=== PATIENT | female | born 1940 | race Caucasian/White ===

== ENCOUNTER → 2016-09-29 | Outpatient (CLI) | payer MEDICARE ==
--- NOTE | 2016-09-29 11:53 | WWHP ---
DATE OF SERVICE: 09/29/2016 CHIEF COMPLAINT: The patient is here for her routine gynecologic exam and mammogram. HPI: This is a 75-year-old G3, P3 with an LMP of 1990. The patient is without gynecologic complaints and denies any postmenopausal bleeding. PAST MEDICAL HISTORY: Osteopenia, status post more than 10 years of Fosamax use in the past and this was stopped in 2009. She denies any other medical problems. MEDICATIONS: 1. Multivitamin daily. 2. Calcium with vitamin D b.i.d. 3. Aspirin 81 mg daily. ALLERGIES: No known drug allergies. Past surgical, [employer], and family histories are unchanged from the 2016 H&P. SOCIAL HISTORY: She smokes about 8 cigarettes per day and has 0 to 1 alcoholic drink per week and denies drug use. She is and is not sexually active. 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 REVIEW OF SYSTEMS: Weight has been stable. She denies respiratory, cardiac, or GI problems. She denies maltreatment or falling. She denies any problems with urinary incontinence. PHYSICAL EXAM: Blood pressure 122/82. Height 5 feet 1 inch. Weight 110 pounds. Temperature 98.2, pulse 61. This a well-developed, well-nourished white female who is alert and oriented x3 in no acute distress. HEENT is within normal limits. NECK: Supple without mass or thyromegaly. CHEST AND LUNGS: Clear to auscultation. HEART: Regular rate and rhythm. Breasts are without mass or discharge. Axillary exam is negative for adenopathy. BACK: Negative for CVA tenderness. ABDOMEN: Soft, nontender, without palpable masses. PELVIC EXAM: External genitalia reveals mild to moderate atrophy without lesions. Cervix and vagina reveal mild to moderate atrophy without lesions. There is no evidence of prolapse. The uterus is midposition, nongravid size and nontender. There are no palpable adnexal masses or tenderness. Rectovaginal exam is negative for mass or tenderness and is negative for occult blood. EXTREMITIES: Nontender. IMPRESSION: 1. A 75-year-old menopausal female with normal gynecologic exam. 2. History of osteopenia, status post more than 10 years use of Fosamax in the past. PLAN: 1. Pap smear was performed. 2. Self breast examination was discussed. 3. Mammogram will be done today. 4. Osteoporosis prevention was discussed. Bone density screening will be done today. 5. I have recommended that she try to quit smoking. 6. The patient states she does not get flu shots and is not interested in getting flu shots. 7. She will return in one year.
--- NOTE | 2016-09-29 12:05 | BD ---
EXAMINATION TYPE: MG DEXA axial skeleton. DATE OF EXAM: 09/29/2016 11:10 AM CLINICAL HISTORY: Postmenopausal female COMPARISON: DEXA bone scan October 04, 2013. Height: 61 inches Weight: 110 FRAX RISK QUESTIONS: Alcohol (3 or more units per day): no Family History (Parent hip fracture): no Glucocorticoids (More than 3mos): no (Ex: prednisone, prednisolone, methylprednisolone, dexamethasone, and hydrocortisone). History of Fracture in Adulthood: no Secondary Osteoporosis: 1. Type 1 Diabetes: no 2. Hyperthyroidism: no 3. Menopause before 45: no 4. Malnutrition: no 5. Chronic liver disease: no Rheumatoid Arthritis: no Current Tobacco Use: yes RISK FACTORS HISTORY OF: History of Fracture: no Family History of Osteoporosis: no Drink Alcohol: very very seldom Active: yes Diet low in dairy products/other sources of calcium: no Postmenopausal woman: yes Take estrogen and/or progesterone medications: not now How long: less than 2 years Lost more than 2 inches in height since high school: no Frequent falls: no Poor Health: no Hyperparathyroidism: no Adrenal Insufficiency: no MEDICATIONS: Prednisone or other steroids: no Thyroid Medications: no Osteoporosis Medications: not now Which medication: Fosamax How Long: less than 1 year Additional Medications: calcium with vitamin D EXAM MEASUREMENTS: Bone mineral densitometry was performed using the [employer] System. Bone mineral density as measured about the Lumbar spine is: ----- L1-L4(G/cm2): 0.956 T Score Values are as follows: ----- L2: -2.5 ----- L3: -2.0 ----- L4: -1.1 ----- L1-L4: -1.9 Bone mineral density has: Decreased -3.3% since study of: 10/04/2013 Bone mineral density about the R hip (g/cm2): 0.860 Bone mineral density about the L hip (g/cm2): 0.842 T Score values are as follows: -----R Neck: -1.3 -----L Neck: -1.4 -----R Intertrochanter: -1.3 -----L Intertrochanter: -1.2 Bone mineral density has: Decreased -3.4% since study of: 10/04/2013 IMPRESSION: Osteopenia (T Score between -2.5 and -1 as noted by T score values in the Low Back and bilateral hips . Bone density is decreased or diminished from prior. There remains slightly increased risk of fracture and the patient may be considered for treatment. Re-Screen 1-2 years. NOTE: T-SCORE=SD OF THE YOUNG ADULT MEAN.
--- NOTE | 2016-09-30 07:40 | MM ---
Reason for exam: screening (asymptomatic). Last mammogram was performed 1 year and 1 month ago. History: Patient is postmenopausal. Excisional biopsy of the left breast. 2 excisional biopsies of the right breast. Physical Findings: A clinical breast exam by your physician is recommended on an annual basis and results should be correlated with mammographic findings. MG 3D Screening Mammo W/Cad Bilateral CC and MLO view(s) were taken. Prior study comparison: September 03, 2015, bilateral MG screening mammo w CAD. October 03, 2013, bilateral digital screening mammo w/CAD. August 31, 2012, bilateral digital screening mammo w/CAD. The breast tissue is heterogeneously dense. This may lower the sensitivity of mammography. Finding: There are typically benign vascular, punctate, round calcifications in both breasts. There is no discrete abnormality. ASSESSMENT: Benign, BI-RAD 2 RECOMMENDATION: Routine screening mammogram of both breasts in 1 year.
== END | disposition home or self-care (01) ==
LOC: WWCWWP 09:06
PROVIDERS: ATTEND Obstetrics & Gynecology
DX: Z12.31 Encounter for screening mammogram for malignant neoplasm of breast (principal); M85.89 Other specified disorders of bone density and structure, multiple sites
CPT/HCPCS: 77080; 77063; G0202

== ENCOUNTER 2018-08-03 11:50 | Emergency (ER) | payer MEDICARE ==
[2018-08-03] MEDS ORDERED: NITROGLYCERIN OINT 1 INCH/GM PACKET TOPICAL STA (12:00)
[2018-08-03] MEDS ORDERED: ASPIRIN 81 MG PO STA (12:00)
--- NOTE | 2018-08-03 12:15 | ED ---
General Adult HPI - General Chief complaint: Chest Pain Stated complaint: chest pain Time Seen by Provider: 08/03/18 11:50 Source: patient, RN notes reviewed Mode of arrival: EMS Limitations: no limitations - History of Present Illness Initial comments: This is a 77-year-old female with past medical history significant for smoking. Patient has no history of diabetes hypertension high cost felt. 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 Patient states the chest pain came on at 9:30 and lasted for about 3-4 minutes but was still there a little bit but the diaphoresis lasted for at least 15 minutes. Patient states she got up and she was very lightheaded.she might pass out but did not. Patient states now she has no chest pain but she does have some discomfort between her shoulder blades when she takes a deep breath only. Patient states the pain is just did not seem classic heaviness the people described she felt as though it was multiple individual horizontal lines of pain going across her chest. Patient denies any calf tenderness or leg swelling. Patient denies any recent fever chills or cough per patient denies abdominal pain patient denies nausea vomiting diarrhea. - Related Data Home Medications Medication Instructions Recorded Confirmed Aspirin EC [Ecotrin Low Dose] 81 mg PO HS 08/03/18 08/03/18 Calcium Carbonate/Vitamin D3 1 tab PO HS 08/03/18 08/03/18 [Calcium 600-Vit D3 200 Tablet] Melatonin 5 mg PO HS 08/03/18 08/03/18 Multivitamins, Thera [Multivitamin 1 tab PO HS 08/03/18 08/03/18 (formulary)] Allergies Allergy/AdvReac Type Severity Reaction Status Date / Time No Known Allergies Allergy Verified 08/03/18 12:37 Review of Systems ROS Statement: Those systems with pertinent positive or pertinent negative responses have been documented in the HPI. ROS Other: All systems not noted in ROS Statement are negative. Past Medical History Past Medical History: No Reported History History of Any Multi-Drug Resistant Organisms: None Reported Past Surgical History: No Surgical Hx Reported Past Psychological History: No Psychological Hx Reported Smoking Status: Current every day smoker Past Alcohol Use History: Occasional Past Drug Use History: None Reported General Exam - General Exam Comments Initial Comments: GENERAL: Patient is well-developed and well-nourished. Patient is nontoxic and well- hydrated and is in mild distress. ENT: Neck is soft and supple. No significant lymphadenopathy is noted. Oropharynx is clear. Moist mucous membranes. Neck has full range of motion without eliciting any pain. EYES: The sclera were anicteric and conjunctiva were pink and moist. Extraocular movements were intact and pupils were equal round and reactive to light. Eyelids were unremarkable. PULMONARY: Unlabored respirations. Good breath sounds bilaterally. No audible rales rhonchi or wheezing was noted. CARDIOVASCULAR: There is a regular rate and rhythm without any murmurs gallops or rubs. ABDOMEN: Soft and nontender with normal bowel sounds. No palpable organomegaly was noted. There is no palpable pulsatile mass. SKIN: Skin is clear with no lesions or rashes and otherwise unremarkable. NEUROLOGIC: Patient is alert and oriented x3. Cranial nerves II through XII are grossly intact. Motor and sensory are also intact. Normal speech, volume and content. Symmetrical smile. MUSCULOSKELETAL: Normal extremities with adequate strength and full range of motion. No lower extremity swelling or edema. No calf tenderness. LYMPHATICS: No significant lymphadenopathy is noted PSYCHIATRIC: Normal psychiatric evaluation. Limitations: no limitations Course Vital Signs 08/03/18 08/03/18 08/03/18 11:56 12:00 12:03 Temperature 97.9 F Pulse Rate 70 77 Respiratory 16 16 Rate Blood Pressure 118/98 123/98 O2 Sat by Pulse 98 99 98 Oximetry 08/03/18 08/03/18 08/03/18 13:34 14:47 15:10 Temperature 98 F Pulse Rate 80 81 84 Respiratory 18 18 16 Rate Blood Pressure 101/78 89/78 113/77 O2 Sat by Pulse 97 96 97 Oximetry 08/03/18 15:54 Temperature 97.9 F Pulse Rate 81 Respiratory 18 Rate Blood Pressure 103/75 O2 Sat by Pulse 96 Oximetry Medical Decision Making - Medical Decision Making EKG shows sinus rhythm at 79 bpm GA interval 228 QRSs 82 QT interval 376 QTC is 431. EKG shows no ST segment elevation or depression or T wave abnormalities are noted Approximate 3:15 I got a call from the radiologist to inform me that it appeared that the patient's aorta was potentially rupturing. I spoke with [facility] emergency Department Dr. Mendoza and they will be calling me back as to whether they can accept the patient. Family was requesting [facility] returned the phone call 3:30 and refused to take the patient. I spoke with [facility] on the request of the family and they accepted the patient however can call me back with a bed before he can start the transfer. Patient's systolic blood pressure dropped a little bit under 170 the patient a 500 mL bolus of normal saline. Patient also is somewhat anxious side gave the patient 0.5 mL of Ativan. Patient felt considerably better. [facility] call back with a bed and EMS was on standby waiting in the ER and immediately took the patient to transfer to [facility]. - Lab Data Result diagrams: 08/03/18 12:15 08/03/18 12:15 Lab Results 08/03/18 08/03/18 08/03/18 Range/Units 12:15 12:15 12:15 WBC 12.1 H (3.8-10.6) k/uL RBC 4.27 (3.80-5.40) m/uL Hgb 12.5 (11.4-16.0) gm/dL Hct 39.8 (34.0-46.0) % MCV 93.3 (80.0-100.0) fL MCH 29.4 (25.0-35.0) pg MCHC 31.5 (31.0-37.0) g/dL RDW 14.1 (11.5-15.5) % Plt Count 253 (150-450) k/uL Neutrophils % 85 % Lymphocytes % 9 % Monocytes % 4 % Eosinophils % 1 % Basophils % 0 % Neutrophils # 10.3 H (1.3-7.7) k/uL Lymphocytes # 1.1 (1.0-4.8) k/uL Monocytes # 0.5 (0-1.0) k/uL Eosinophils # 0.1 (0-0.7) k/uL Basophils # 0.1 (0-0.2) k/uL PT (9.0-12.0) sec INR (<1.2) APTT (22.0-30.0) sec Sodium 138 (137-145) mmol/L Potassium 4.9 (3.5-5.1) mmol/L Chloride 107 (98-107) mmol/L Carbon Dioxide 23 (22-30) mmol/L Anion Gap 8 mmol/L BUN 22 H (7-17) mg/dL Creatinine 0.90 (0.52-1.04) mg/dL Est GFR (CKD-EPI)AfAm 71 (>60 ml/min/1.73 sqM) Est GFR (CKD-EPI)NonAf 62 (>60 ml/min/1.73 sqM) Glucose 107 H (74-99) mg/dL Calcium 9.6 (8.4-10.2) mg/dL Magnesium 2.1 (1.6-2.3) mg/dL Total Bilirubin 0.5 (0.2-1.3) mg/dL AST 96 H (14-36) U/L ALT 85 H (9-52) U/L Alkaline Phosphatase 43 (38-126) U/L Total Creatine Kinase 69 (30-135) U/L CK-MB (CK-2) 0.9 (0.0-2.4) ng/mL CK-MB (CK-2) Rel Index 1.3 Troponin I 0.023 (0.000-0.034) ng/mL Total Protein 6.7 (6.3-8.2) g/dL Albumin 4.0 (3.5-5.0) g/dL 08/03/18 Range/Units 12:15 WBC (3.8-10.6) k/uL RBC (3.80-5.40) m/uL Hgb (11.4-16.0) gm/dL Hct (34.0-46.0) % MCV (80.0-100.0) fL MCH (25.0-35.0) pg MCHC (31.0-37.0) g/dL RDW (11.5-15.5) % Plt Count (150-450) k/uL Neutrophils % % Lymphocytes % % Monocytes % % Eosinophils % % Basophils % % Neutrophils # (1.3-7.7) k/uL Lymphocytes # (1.0-4.8) k/uL Monocytes # (0-1.0) k/uL Eosinophils # (0-0.7) k/uL Basophils # (0-0.2) k/uL PT 10.5 (9.0-12.0) sec INR 1.0 (<1.2) APTT 22.4 (22.0-30.0) sec Sodium (137-145) mmol/L Potassium (3.5-5.1) mmol/L Chloride (98-107) mmol/L Carbon Dioxide (22-30) mmol/L Anion Gap mmol/L BUN (7-17) mg/dL Creatinine (0.52-1.04) mg/dL Est GFR (CKD-EPI)AfAm (>60 ml/min/1.73 sqM) Est GFR (CKD-EPI)NonAf (>60 ml/min/1.73 sqM) Glucose (74-99) mg/dL Calcium (8.4-10.2) mg/dL Magnesium (1.6-2.3) mg/dL Total Bilirubin (0.2-1.3) mg/dL AST (14-36) U/L ALT (9-52) U/L Alkaline Phosphatase (38-126) U/L Total Creatine Kinase (30-135) U/L CK-MB (CK-2) (0.0-2.4) ng/mL CK-MB (CK-2) Rel Index Troponin I (0.000-0.034) ng/mL Total Protein (6.3-8.2) g/dL Albumin (3.5-5.0) g/dL Critical Care Time Critical Care Time: Yes Total Critical Care Time: 80 Disposition Clinical Impression: Ruptured thoracic aortic aneurysm Disposition: OTHER INSTITUTION NOT DEFINED Referrals: Sheldon Robles MD [Primary Care Provider] - 1-2 days Time of Disposition: 16:16 - Out of Hospital Transfer - Req. Specs Out of Hospital Transfer - Requested Specifics: Cardiac ICU ([facility] )
[2018-08-03 12:38] LABS: Basophils # (A) 0.1 k/uL (0-0.2); Basophils % (A) 0 %; Eosinophils # (A) 0.1 k/uL (0-0.7); Eosinophils % (A) 1 %; HCT 39.8 % (34.0-46.0); HGB 12.5 gm/dL (11.4-16.0); Lymphocytes # (A) 1.1 k/uL (1.0-4.8); Lymphocytes % (A) 9 %; MCH 29.4 pg (25.0-35.0); MCHC 31.5 g/dL (31.0-37.0); MCV 93.3 fL (80.0-100.0); Monocytes # (A) 0.5 k/uL (0-1.0); Monocytes % (A) 4 %; Neutrophils # (A) 10.3 k/uL (1.3-7.7); Neutrophils % (A) 85 %; Platelet Count 253 k/uL (150-450); RBC 4.27 m/uL (3.80-5.40); RDW 14.1 % (11.5-15.5); WBC 12.1 k/uL (3.8-10.6)
[2018-08-03 12:47] LABS: Calcium 9.6 mg/dL (8.4-10.2); Magnesium 2.1 mg/dL (1.6-2.3); Potassium 4.9 mmol/L (3.5-5.1); Total Bilirubin 0.5 mg/dL (0.2-1.3); Total Protein 6.7 g/dL (6.3-8.2)
[2018-08-03 12:54] LABS: Partial Thromboplastin Time 22.4 sec (22.0-30.0); Prothrombin Time 10.5 sec (9.0-12.0)
--- NOTE | 2018-08-03 13:06 | XR ---
EXAMINATION TYPE: XR chest 2V DATE OF EXAM: 08/03/2018 COMPARISON: Chest x-ray October 04, 2013 HISTORY: Chest pain today. TECHNIQUE: Frontal and lateral views of the chest are obtained. FINDINGS: There is some chronic parenchymal change without suspicious focal air space opacity, pleur al effusion, or pneumothorax seen. The cardiac silhouette size is upper limits of normal currently. There is atherosclerotic and ectatic thoracic aorta felt more prominent with involvement of the ascen ding aorta noted. The osseous structures are intact. IMPRESSION: Increasingly ectatic possible aneurysmal change to the thoracic aorta. No suspicious acut e pulmonary process is evident.
[2018-08-03 13:11] LABS: Creatine Kinase MB 0.9 ng/mL (0.0-2.4); Troponin I 0.023 ng/mL (0.000-0.034)
--- NOTE | 2018-08-03 15:15 | CT ---
EXAMINATION TYPE: CT angio thor/abd pel aorta DATE OF EXAM: 08/03/2018 COMPARISON: None. HISTORY: Chest pain today, abnormal x-ray. CT DLP: 882.9 mGycm. Automated Exposure Control for Dose Reduction was Utilized. CONTRAST: CTA scan of the thorax, abdomen and pelvis is performed without oral and without and with IV Contrast , patient injected with 100 mL of Isovue 370. FINDINGS: VASCULAR: Aneurysm to the ascending aorta measuring up to 3.8 cm diameter axial image 34 is noted. Th ere is suspicious surrounding fluid at level of the ascending aorta extending into the arch. There is slightly irregularity along the anterior wall of the ascending aorta axial image 32 noted. In additi on there is vague irregular linear low signal beginning in the proximal descending aorta for referen ce anteriorly proximal descending thoracic aorta axial image 33. There is extension of this vague brando ear signal to level of diaphragm and likely into the celiac axis which is poorly opacified at its brett gin axial image 82. There is bovine arch with patency of the great vessels from the aortic arch and n o dissection extension. There is patency of the SMA, bilateral single renal arteries and JEANNETTE. There i s patency of the iliac arteries in the pelvis and femoral arteries in the bilateral groin without obv ious stenosis or dissection. No aneurysm at this level is evident. LUNGS: Dependent atelectasis in both lower lobes is present. There is bibasilar linear scarring and/o r atelectasis MEDIASTINUM: There are no greater than 1 cm hilar or mediastinal lymph nodes. There is small to moder ate size pericardial effusion seen measuring up to 16 mm in thickness. No cardiomegaly is present. T here is moderate right atrial dilatation noted. OTHER: No additional significant abnormality is seen. LIVER/GB: Mild to moderate periportal edema is seen which is nonspecific finding. PANCREAS: No significant abnormality is seen. SPLEEN: No significant abnormality is seen. ADRENALS: No significant abnormality is seen. KIDNEYS: There is 3.1 cm simple appearing cyst posteriorly lower pole level right kidney axial image 105 series 501. BOWEL:. There is nonspecific moderate wall thickening and mild dilatation of the duodenal sweep. GENITAL ORGANS: Scattered pelvic phleboliths are present bilaterally. LYMPH NODES: No greater than 1cm abdominal or pelvic lymph nodes are appreciated. OSSEOUS STRUCTURES: There is grade 1 anterolisthesis L4 on L5. OTHER: No significant additional abnormality is seen. IMPRESSION: Ascending aortic aneurysm up to 3.8 cm in diameter is confirmed. There are suspicious fi ndings consistent with impending rupture due to moderate mediastinal fluid collection and moderate-si zed pericardial effusion with irregularity along the anterior margin of the aorta. Unusual vague brando ear hypodensity in the descending aorta is not classic of dissection but cannot be excluded. No proxi mal extension into the ascending aorta or arch is identified. Suspicious narrowing of the celiac sunny ry at origin is present suggesting dissection extension at this level. Further details as discussed a kiley. Critical results communicated to ordering ER physician via telephone at time of dictation.
[2018-08-03] MEDS ORDERED: LORazepam 2 MG/ML INJ IV STA ×2 (15:17→15:59)
[2018-08-03] MEDS ORDERED: SODIUM CHLORIDE 0.9% 500 ML 500 ML IV ONE (15:49)
[2018-08-03 15:57] VITALS: BP 103/75; PULSE 81; RESP 18; TEMP 97.9
== END 2018-08-03 16:17 | disposition other institution (70) ==
LOC: EC 11:50
DX: I71.1 Thoracic aortic aneurysm, ruptured (principal); F17.200 Nicotine dependence, unspecified, uncomplicated; Z79.82 Long term (current) use of aspirin; Z79.899 Other long term (current) drug therapy
CPT/HCPCS: 99291 ×2; 99292 ×2; 96374 ×2; 96376; 96375; 36415; 93005; 80053; 82550; 82553; 83735; 84484; 85025; 85610; 85730; 71046; 71275; 74174; J2060; Q9967

== ENCOUNTER → 2019-08-01 | Outpatient (CLI) | payer MEDICARE ==
[2019-08-01 12:53] VITALS: BP 154/92; PULSE 62; RESP 18; TEMP 97.4
--- NOTE | 2019-08-01 13:32 | P.HPOB ---
History of Present Illness H&P Date: 08/01/19 Chief Complaint: The patient is here for her routine gynecologic exam and ma mmogram. This is a 78-year-old with an LMP of 1990. The patient is without gynecologic complaints. Review of Systems She is gained about 6 pounds over the last 3 years. She denies respiratory, cardiac and G.I. problems. She denies maltreatment or problems with falling. : Occasionally has small leakage if she does not get to the bathroom on time. Past Medical History Additional Past Medical History / Comment(s): Aortic dissection requiring surgery 2018. Osteopenia status post 10 years use of Fosamax which was disco ntinued in 2009. 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 History of Any Multi-Drug Resistant Organisms: None Reported Past Surgical History: Breast Surgery Additional Past Surgical History / Comment(s): Surgery for aortic dissection 2018. Lithotripsy for kidney stones. Multiple breast biopsies. Past Psychological History: No Psychological Hx Reported Smoking Status: Former smoker Past Alcohol Use History: Occasional (1-2 per week.) Additional Past Alcohol Use History / Comment(s): Quit smoking July 2018 after her aortic dissection. Past Drug Use History: None Reported Additional History: The patient is and is not sexually active. 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 - Past Family History Mother Family Medical History: Cancer Additional Family Medical History / Comment(s): Multiple myeloma. Brother(s) Family Medical History: Dementia Medications and Allergies Home Medications Medication Instructions Recorded Confirmed Type Aspirin EC [Ecotrin Low Dose] 81 mg PO HS 08/03/18 08/01/19 History Calcium Carbonate/Vitamin D3 1 tab PO HS 08/03/18 08/01/19 History [Calcium 600-Vit D3 200 Tablet] Melatonin 5 mg PO HS 08/03/18 08/01/19 History Multivitamins, Thera [Multivitamin 1 tab PO HS 08/03/18 08/01/19 History (formulary)] Atorvastatin [Lipitor] 10 mg PO HS 08/01/19 08/01/19 History Potassium 99 mg PO DAILY 08/01/19 08/01/19 History Allergies Allergy/AdvReac Type Severity Reaction Status Date / Time No Known Allergies Allergy Verified 08/01/19 12:53 Exam Vital Signs Temp Pulse Resp BP Pulse Ox 08/01/19 12:48 97.4 F L 62 18 154/92 98 Intake and Output 07/31/19 08/01/19 08/01/19 22:59 06:59 14:59 Other: Weight 52.617 kg Height 5 feet 1 inch, weight 116 pounds, BMI 21.9. This is a well-developed well-nourished female who is alert and oriented times 3 in no acute distress. HEENT: Within normal limits. NECK: Supple without mass or thyromegaly. CHEST AND LUNGS: Clear to auscultation. HEART: Regular rate and rhythm. BREASTS: Are without mass or discharge. AXILLARY EXAM: Negative for adenopathy. BACK: Negative for CVA tenderness. ABDOMEN: Soft, nontender, without palpable masses. PELVIC EXAM: Normal external genitalia with mild to moderate atrophy. Cervix and vagina appear normal with mild to moderate atrophy. There is no unusual discharge. There is no evidence of prolapse. The uterus is midposition, nongravid size and nontender. There are no palpable adnexal masses or tenderness. RECTAL EXAM: Rectovaginal exam is negative for mass or tenderness and is negative for occult blood. EXTREMITIES: Nontender. IMPRESSION: 1. 78-year-old menopausal female with normal gynecologic exam. 2. History of osteopenia status post 10 years use of bisphosphonates until 2009. PLAN: 1. Pap smears have been discontinued. She has been adequately screened and has no history of cervical problems. 2. Self breast awareness was discussed with the patient. 3. Screening mammogram will be done today. 4. Osteoporosis prevention was discussed. I have stressed the importance of adequate calcium, vitamin D and regular exercise. Recommended amounts of calcium and vitamin D were also discussed. Bone density testing will be done today. 5. She did receive her flu shot recently. 6. The patient was advised to return in 1-2 years for her well woman examination.
--- NOTE | 2019-08-01 15:07 | BD ---
EXAMINATION TYPE: Axial Bone Density DATE OF EXAM: 08/01/2019 COMPARISON: 2017 CLINICAL HISTORY: Z 78.0 Height: 60.75 Weight: 113 FRAX RISK QUESTIONS: Alcohol (3 or more units per day): no Family History (Parent hip fracture): no Glucocorticoids (More than 3mos): no (Ex: prednisone, prednisolone, methylprednisolone, dexamethasone, and hydrocortisone). History of Fracture in Adulthood: no Secondary Osteoporosis: 1. Type 1 Diabetes: no 2. Hyperthyroidism: no 3. Menopause before 45: no 4. Malnutrition: no 5. Chronic liver disease: no Rheumatoid Arthritis: no Current Tobacco Use: no RISK FACTORS HISTORY OF: Family History of Osteoporosis: patient does not think so Active: yes Diet low in dairy products/other sources of calcium: no Postmenopausal woman: yes Take estrogen and/or progesterone medications: no Lost more than 2 inches in height since high school: no Frequent falls: no Poor Health: no Hyperparathyroidism: no Adrenal Insufficiency: no MEDICATIONS: Prednisone or other steroids: no Thyroid Medications: no Osteoporosis Medications: not now Which medication: Fosamax How Long:took it about 10 years ago Additional Medications: Lipitor , calcium Additional History: aortic resection Jul 2018 EXAM MEASUREMENTS: Bone mineral densitometry was performed using the [employer] System. Bone mineral density as measured about the Lumbar spine is: ----- L1-L4(G/cm2): 0.969 T Score Values are as follows: ----- L2: -2.3 ----- L3: -1. ----- L4: -1.1 ----- L1-L4: -1.8 Bone mineral density has: Increased 1.4% since study of: 09/29/2016 Bone mineral density about the R hip (g/cm2): 0.861 Bone mineral density about the L hip (g/cm2): 0.822 T Score values are as follows: -----R Neck: -1.3 -----L Neck: -1.6 -----R Total: -1.1 -----L Total: -1.1 Bone mineral density has: Decreased -3.4% since study of: 09/29/2016 IMPRESSION: Osteopenia (T Score between -2.5 and -1). There is slightly increased risk of fracture and the patient may be considered for treatment. Re-Screen 2-5 years. NOTE: T-SCORE=SD OF THE YOUNG ADULT MEAN.
--- NOTE | 2019-08-03 13:43 | MM ---
Reason for exam: screening (asymptomatic). Last mammogram was performed 2 years and 10 months ago. History: Patient is postmenopausal. Excisional biopsy of the left breast. 2 excisional biopsies of the right breast. Physical Findings: A clinical breast exam by your physician is recommended on an annual basis and results should be correlated with mammographic findings. MG Screening Mammo w CAD Bilateral CC and MLO view(s) were taken. Prior study comparison: September 29, 2016, bilateral MG 3d screening mammo w/cad. September 03, 2015, bilateral MG screening mammo w CAD. The breast tissue is heterogeneously dense. This may lower the sensitivity of mammography. Focal asymmetry left anterior upper outer quadrant, decreased in size. No significant changes when compared with prior studies. ASSESSMENT: Benign, BI-RAD 2 RECOMMENDATION: Routine screening mammogram of both breasts in 1 year.
--- NOTE | 2019-08-09 09:47 | P.PN ---
Progress Note - Text Progress Note Date: 08/09/19 OUTPATIENT FOLLOW-UP NOTE TEST(S)/RESULTS: Test results from 08/01/2019 include benign mammogram and bone density test showing osteopenia with minimal change from her 2017 bone density test. METHOD OF NOTIFICATION: The patient was notified by phone. PATIENT COMMENTS: DIAGNOSIS: Benign mammogram and osteopenia. DISCUSSION: I have stressed the importance of adequate calcium, vitamin D, and regular exercise. She will try to take precautions to avoid falling. PLAN: We will plan on repeating the bone density testing in approximately 2-3 years. The patient was advised to return in 1-2 years for her well woman examination.
== END | disposition home or self-care (01) ==
LOC: WWCWWP 12:39
PROVIDERS: ATTEND Obstetrics & Gynecology
DX: Z12.31 Encounter for screening mammogram for malignant neoplasm of breast (principal); M85.89 Other specified disorders of bone density and structure, multiple sites; Z78.0 Asymptomatic menopausal state
CPT/HCPCS: 77067; 77080

== ENCOUNTER → 2020-12-03 | Outpatient (CLI) | payer MEDICARE ==
[2020-12-03 10:52] VITALS: BP 121/85; PULSE 87; RESP 18; TEMP 98.1
--- NOTE | 2020-12-03 11:57 | P.HPOB ---
History of Present Illness H&P Date: 12/03/20 Chief Complaint: The patient is here for her routine gynecologic exam and ma mmogram. This is an 80-year-old with an LMP of 1991. The patient states for the past 2 months she has noticed a slight discharge during the day especially when she has been on her feet. She describes it as a thin light brownish discharge without odor. She denies any postmenopausal bleeding and denies irritation. Pap smears have been previously discontinued since she was considered low risk. She is otherwise without gynecologic complaints. Review of Systems She has lost about 7 pounds over the past year. She denies respiratory, cardiac and G.I. problems. She denies maltreatment or problems with falling. : she denies any significant problems with urinary leakage. Past Medical History Additional Past Medical History / Comment(s): Aortic dissection requiring surgery 2018. Osteopenia status post 10 years use of Fosamax which was discontinued in 2009. 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 History of Any Multi-Drug Resistant Organisms: None Reported Past Surgical History: Breast Surgery Additional Past Surgical History / Comment(s): Surgery for aortic dissection 2019. Lithotripsy for kidney stones. Multiple breast biopsies. Past Psychological History: No Psychological Hx Reported Smoking Status: Former smoker Past Alcohol Use History: Occasional (2 or 3 per week) Additional Past Alcohol Use History / Comment(s): Quit smoking July 2018 after her aortic dissection. Past Drug Use History: None Reported Additional History: The patient is and is not sexually active. 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 - Past Family History Mother Family Medical History: Cancer Additional Family Medical History / Comment(s): Multiple myeloma. Brother(s) Family Medical History: Dementia Medications and Allergies Home Medications Medication Instructions Recorded Confirmed Type Aspirin EC [Ecotrin Low Dose] 81 mg PO HS 08/03/18 12/03/20 History Calcium Carbonate/Vitamin D3 1 tab PO HS 08/03/18 12/03/20 History [Calcium 600-Vit D3 200 Tablet] Melatonin 5 mg PO HS 08/03/18 12/03/20 History Multivitamins, Thera [Multivitamin 1 tab PO HS 08/03/18 12/03/20 History (formulary)] Atorvastatin [Lipitor] 10 mg PO HS 08/01/19 12/03/20 History Cholecalciferol (Vitamin D3) 125 mcg PO DAILY 12/03/20 12/03/20 History [Vitamin D3 (5000 Iu)] Theanine [l-Theanine] 200 mg PO DAILY 12/03/20 12/03/20 History Allergies Allergy/AdvReac Type Severity Reaction Status Date / Time No Known Allergies Allergy Verified 12/03/20 10:42 Exam Vital Signs Temp Pulse Resp BP Pulse Ox 12/03/20 10:45 98.1 F 87 18 121/85 91 L Intake and Output 12/02/20 12/03/20 12/03/20 22:59 06:59 14:59 Other: Weight 49.442 kg Height 5 feet 1 inch, weight 109 pounds, BMI 20.6. This is a well-developed well-nourished female who is alert and oriented times 3 in no acute distress. HEENT: Within normal limits. NECK: Supple without mass or thyromegaly. CHEST AND LUNGS: Clear to auscultation. HEART: Regular rate with an irregularly irregular rhythm. BREASTS: Are without mass or discharge. AXILLARY EXAM: Negative for adenopathy. BACK: Negative for CVA tenderness. ABDOMEN: Soft, nontender, without palpable masses. PELVIC EXAM: Normal external genitalia with mild to moderate atrophy. Cervix and vagina appear normal with mild to moderate atrophy. There is a small mucousy discharge with a slightly yellowish tinge. There is no odor. There is no evidence of prolapse. The uterus is midposition, nongravid size and nontender. There are no palpable adnexal masses or tenderness. RECTAL EXAM: Rectovaginal exam is negative for mass or tenderness and is negative for occult blood. EXTREMITIES: Nontender. IMPRESSION: 1. 80-year-old menopausal female who has noticed a two-month history of slight thin vaginal discharge with a small amount of mucousy discharge on exam today. 2. Irregularly irregular cardiac rhythm, somewhat suspicious for atrial fibrillation. 3. History of osteopenia status post 10 years use of Fosamax. PLAN: 1. Pap smear was performed because of the discharge noticed from the vagina by the patient. 2. Self breast awareness was discussed with the patient. 3. Screening mammogram will be done today. 4. The patient will be sent for an twelve-lead EKG because of the irregular cardiac rhythm. This will be done today. 5. Affirm vaginitis testing will be sent from the vagina. 6. She has received her flu vent vaccination last fall and has completed her Covid vaccination series. 7.Osteoporosis prevention was discussed. I have stressed the importance of adequate calcium, vitamin D and regular exercise. Recommended amounts of calcium and vitamin D were also discussed. Her last bone density test was done in July 2019. We will plan on repeating this in approximately 1-2 years. 7. She was advised to return in one year for her annual well woman exam and as needed.
--- NOTE | 2020-12-03 15:25 | P.PN ---
Progress Note - Text Progress Note Date: 12/03/20 OUTPATIENT FOLLOW-UP NOTE TEST(S)/RESULTS: EKG done today shows sinus bradycardia with marked sinus arrhythmia. Otherwise normal ECG. METHOD OF NOTIFICATION: Patient was notified by phone. 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 Harry Marr ([facility]) DIAGNOSIS: Sinus arrhythmia with sinus bradycardia DISCUSSION: We have discussed how this is not atrial fibrillation, but the overall rate is less than normal and there is greater variation between beats. I have recommended that she follow-up with her PCP. may be her vascular surgeon and not her director of database marketing since he is the one that took care of her for her aortic dissection. I will send a copy of her EKG to Dr. Robles, Dr. Marr, and a copy to the patient. She will discuss with Dr. Robles whether she needs immediate follow-up or additional workup. She is also aware that her blood pressure was elevated in the office today. She states she will check her blood pressure at home on a regular basis and follow up with her PCP for blood pressure elevations. PLAN: As above.
[2020-12-04 16:48] LABS: Gardnerella Positive (Negative); Source Vagina; Trichomonas Negative (Negative)
--- NOTE | 2020-12-05 14:28 | MM ---
Reason for exam: screening (asymptomatic). Last mammogram was performed 1 year and 4 months ago. History: Patient is postmenopausal. Excisional biopsy of the left breast. 2 excisional biopsies of the right breast. Physical Findings: A clinical breast exam by your physician is recommended on an annual basis and results should be correlated with mammographic findings. MG 3D Screening Mammo W/Cad Bilateral CC and MLO view(s) were taken. Prior study comparison: August 01, 2019, bilateral MG screening mammo w CAD. September 29, 2016, bilateral MG 3d screening mammo w/cad. The breast tissue is heterogeneously dense. This may lower the sensitivity of mammography. Spiculated mass upper outer right breast 4.5cm from nipple. Spiculated area upper outer left breast zone C. ASSESSMENT: Incomplete: need additional imaging evaluation, BI-RAD 0 RECOMMENDATION: Special view mammogram and ultrasound of both breasts. [facility] will attempt to contact patient to return for supplemental views and ultrasound.
--- NOTE | 2020-12-05 15:30 | P.PN ---
Progress Note - Text Progress Note Date: 12/05/20 Affirm vaginitis panel from 12/03/20 is positive for Gardnerella and negative for Alise and Trichomonas. The patient was notified by phone. A/Bacterial vaginosis Plan/ Metronidazole 500mg PO [id number]. No refills. The electronic prescription was sent to [facility] pharmacy in [place]. Call if problems.
--- NOTE | 2020-12-17 11:05 | P.PN ---
Progress Note - Text Progress Note Date: 12/17/20 OUTPATIENT FOLLOW-UP NOTE TEST(S)/RESULTS: Test results from 12/03/2020 include negative Pap smear and screening mammogram that requires a bilateral breast workup with additional views. METHOD OF NOTIFICATION: A message was left on the patient's voicemail with these results. PATIENT COMMENTS: DIAGNOSIS: Negative Pap smear and mammogram requiring bilateral views. DISCUSSION: On the message I have instructed the patient to [facility] to schedule the follow-up on her mammogram. PLAN: As above.
== END ==
LOC: WWCWWP 10:34
PROVIDERS: ATTEND Obstetrics & Gynecology
DX: Z12.31 Encounter for screening mammogram for malignant neoplasm of breast (principal); N89.8 Other specified noninflammatory disorders of vagina; I49.8 Other specified cardiac arrhythmias; Z87.39 Personal history of other diseases of the musculoskeletal system and connective tissue; Z87.891 Personal history of nicotine dependence
CPT/HCPCS: 77063; 77067; 87480; 87510; 87660; 93005

== ENCOUNTER → 2021-01-24 | Outpatient (CLI) | payer MEDICARE ==
--- NOTE | 2021-01-27 09:15 | MM ---
Reason for exam: additional evaluation requested from abnormal screening. Last mammogram was performed 2 months ago. History: Patient is postmenopausal. Excisional biopsy of the left breast. 2 excisional biopsies of the right breast. Physical Findings: Nurse did not find any significant physical abnormalities on exam. MG 3D Work Up W/Cad AMISH Bilateral spot compression CC, spot compression MLO, and LM view(s) were taken. Prior study comparison: December 03, 2020, bilateral MG 3d screening mammo w/cad. August 01, 2019, bilateral MG screening mammo w CAD. The breast tissue is extremely dense which could obscure a lesion on mammography. Right focal asymmetry 10-11 o'clock, 4-5cm from nipple, ultrasound. Left focal asymmetry 1-2 o'clock, 7cm from nipple posterior depth, ultrasound. These results were verbally communicated with the patient and result sheet given to the patient on 01/24/21. ASSESSMENT: Incomplete: need additional imaging evaluation, BI-RAD 0 RECOMMENDATION: Ultrasound of both breasts.
--- NOTE | 2021-01-27 09:16 | USB ---
Reason for exam: additional evaluation requested from abnormal screening. History: Patient is postmenopausal. Excisional biopsy of the left breast. 2 excisional biopsies of the right breast. US Breast Workup Limited AMISH Right limited breast ultrasound including focal area of concern, retroareolar and axilla demonstrates no cystic or solid lesion seen. Left limited breast ultrasound including focal area of concern, retroareolar and axilla demonstrates no cystic or solid lesion seen. No sonographic findings. 6 month follow up bilateral diagnostic mammogram. These results were verbally communicated with the patient and result sheet given to the patient on 01/24/21. ASSESSMENT: Probably benign, BI-RAD 3 RECOMMENDATION: Follow-up diagnostic mammogram of both breasts in 6 months.
--- NOTE | 2021-01-28 13:46 | P.PN ---
Progress Note - Text Progress Note Date: 01/28/21 OUTPATIENT FOLLOW-UP NOTE TEST(S)/RESULTS: Bilateral breast workup including bilateral breast ultrasound done on 01/24/2021 and was probably benign. Follow-up diagnostic mammogram of both breasts was recommended in 6 months. METHOD OF NOTIFICATION: The patient was given these results verbally by the radiology Department in the [facility] at the time of the breast workup. PATIENT COMMENTS: DIAGNOSIS: Probably benign bilateral breast workup. DISCUSSION: PLAN: Follow-up diagnostic mammogram of both breasts as recommended in 6 months. The order slip was mailed to the patient for this.
== END | disposition home or self-care (01) ==
LOC: RADMAMWWP 13:37
PROVIDERS: ATTEND Obstetrics & Gynecology
DX: R92.8 Other abnormal and inconclusive findings on diagnostic imaging of breast (principal); Z78.0 Asymptomatic menopausal state
CPT/HCPCS: 77066; 76642; G0279; 77062

== ENCOUNTER → 2024-12-08 | Outpatient (CLI) | payer MEDICARE ==
--- NOTE | 2024-12-08 14:43 | MM ---
Reason for Exam: Screening (asymptomatic). Last mammogram was performed 3 year(s) and 4 month(s) ago. Patient History: Menarche at age 14. First Full-Term at age 23. Postmenopausal. Patient used Estrogen for 1 year. Excisional Biopsy on the Right side. Excisional Biopsy on the Right side. Excisional Biopsy on the Left side. Risk Values: Jayde 5 year model risk: 1.6%. NCI Lifetime model risk: 1.6%. Prior Study Comparison: 12/03/2020 Bilateral Screening Mammogram, [facility]. 01/24/2021 Bilateral Diagnostic Mammogram, [facility]. 07/28/2021 Bilateral Diagnostic Mammogram, [facility]. Tissue Density: The breasts are heterogeneously dense, which may obscure small masses. Findings: Analyzed By CAD. Right breast: There is no suspicious group of microcalcifications or new suspicious mass. Left breast: Spiculated mass posterior depth left breast posterior nipple line 8.5 cm from nipple measuring 13 mm. Overall Assessment: Incomplete: need additional imaging evaluation, BI-RAD 0 Management: Diagnostic Mammogram of the left breast. Diagnostic Breast Ultrasound of the left breast. Tissue sampling will ultimately be required. [facility] will attempt to contact patient to return for supplemental views and ultrasound if indicated. Patient should continue monthly self-breast exams. A clinical breast exam by your physician is recommended on an annual basis. This exam should not preclude additional follow-up of suspicious palpable abnormalities. Note on Jayde scores and lifetime risk: 1. A Jayde score greater than 3% is considered moderate risk. If this is the case, consider specialist referral to assess eligibility for a risk reducing agent. 2. If overall lifetime risk for the development of breast cancer is 20% or higher, the patient may qualify for future screening with alternating mammogram and breast MRI. [facility], , 12/08/2024 2:41 PM. Electronically signed and approved by: Kayode Cristina DO
== END | disposition home or self-care (01) ==
LOC: RADMAMWWP 13:45
PROVIDERS: ATTEND Family Medicine
DX: Z12.31 Encounter for screening mammogram for malignant neoplasm of breast (principal); R92.333 Mammographic heterogeneous density, bilateral breasts; Z78.0 Asymptomatic menopausal state
CPT/HCPCS: 77063; 77067

== ENCOUNTER → 2024-12-27 | Day surgery (SDC) | payer MEDICARE ==
--- NOTE | 2025-01-05 09:26 | MM ---
Reason for Exam: Post Procedure Mammogram. Last screening mammogram was performed less than 1 month ago. Patient History: Menarche at age 14. First Full-Term at age 23. Postmenopausal. Patient used Estrogen for 1 year. Excisional Biopsy on the Right side. Excisional Biopsy on the Right side. Excisional Biopsy on the Left side. Risk Values: Jayde 5 year model risk: 1.6%. NCI Lifetime model risk: 1.6%. Prior Study Comparison: 09/29/2016 Bilateral Screening Mammogram, [facility]. 08/01/2019 Bilateral Screening Mammogram, [facility]. 12/03/2020 Bilateral Screening Mammogram, [facility]. 01/24/2021 Bilateral Diagnostic Mammogram, [facility]. 01/24/2021 Bilateral Diagnostic Ultrasound, [facility]. 07/28/2021 Bilateral Diagnostic Mammogram, [facility]. 12/08/2024 Bilateral MG 3D screening mammo w/cad, [facility]. 12/20/2024 Left MG 3D work up w/cad , [facility]. Tissue Density: Left: The breasts are heterogeneously dense, which may obscure small masses. Pathology Description: Location: 12 o'clock. Marker Left Behind. Needle Type: Taxify Cores: 3 Gauge: 12 The procedure of ultrasound guided core biopsy was explained to the patient. Benefits, alternatives, and risks were discussed. An informed consent was then obtained. The patient was placed in supine positioning for imaging and for the procedure. Preprocedure ultrasound redemonstrates a lobulated hypoechoic mass measuring 1.6 x 1.0 x 1.4 cm at 12:00 position 8 cm distance from nipple in the left breast. The overlying skin was prepped and draped in usual sterile fashion. Lidocaine buffered with bicarbonate was used as anesthetic into the skin and subcutaneous tissue up to area of concern in the left breast. Under ultrasound guidance, a vacuum assisted biopsy gun device was used to obtain 3 core samples. Following this, a biopsy clip was left in lesion. The patient tolerated the procedure well without any immediate complication. The patient was kept in the radiology department for short stay after the procedure and then discharged home in stable condition. Postprocedure mammogram: The patient was transferred to mammography for physician ordered post procedure mammogram for clip placement verification. Post procedure mammogram demonstrates appropriate placement of clip. Clip appears satisfactory in position relative to the area of concern on mammogram. Impression: Successful, uncomplicated ultrasound guided core biopsy of area of concern in the left breast, full pathology results to follow. High index of suspicion noted at time of procedure. [facility], , 12/27/2024 3:27 PM. Pathology Results: Result: Malignant, Invasive ductal carcinoma. Pathology and radiology were reviewed. Findings are concordant. LEFT BREAST, TWELVE O'CLOCK, 8 CM FROM NIPPLE, NEEDLE CORE BIOPSY: Invasive well differentiated ductal carcinoma (Grade 1). See Surgical Pathology Cancer Case Summary and Comment. Overall Assessment: Malignant Assessment: MG diagnostic mammo LT wo CAD. - Left: Known biopsy proven malignancy, BI-RAD 6. Management: Surgical Consultation of the left breast. Electronically signed and approved by: Harpreet Roche M.D.
== END ==
LOC: RADUSWWP 10:10
PROVIDERS: ATTEND Family Medicine
DX: C50.912 Malignant neoplasm of unspecified site of left female breast (principal); R92.8 Other abnormal and inconclusive findings on diagnostic imaging of breast
CPT/HCPCS: 88305; 88342; 88341; 77065; 19083; A4648